=== PATIENT | male | born 1970 | race Caucasian/White ===

== ENCOUNTER 2021-04-03 02:19 | Emergency (ER) | payer BC ==
[~2021-04-03] VITALS: Ht 182 cm; Wt 83.0 kg
[~2021-04-03 02:19] MED LIST: ASPI-999 PO; CEPH500C PO; LISI10TA25; METO-333; METO25TA6 PO; PARO37.512 PO
[2021-04-03] MEDS ORDERED: ACETAMINOPHEN 500 MG TAB (TYLENOL) PO STA (02:42)
[2021-04-03] MEDS ORDERED: ACETAMINOPHEN 500 MG TAB (TYLENOL) ONE (02:43)
--- NOTE | 2021-04-03 02:45 | ED General ---
General Chief Complaint: Cough/Cold/Flu Symptoms Stated Complaint: COUGH,FEVER,WEAKNESS,LOSS OF TASTE & SMELL Source of Information: Patient History of Present Illness Date Seen by Provider: Apr 03, 2021 Time Seen by Provider: 02:35 Initial Comments PT ARRIVES VIA POV FROM HOME PT STATES HE HAS BEEN ILL FOR THE LAST 8 DAYS--SYMPTOMS BEGAN 03/26/21 C/O COUGH/CONGESTION C/O SUBJECTIVE FEVER C/O GENERALIZED WEAKNESS C/O LOSS OF TASTE AND SMELL C/O HEADACHE C/O BODY ACHES C/O SORE THROAT C/O FATIGUE C/O NAUSEA AND A LITTLE BIT OF DIARRHEA HAS NOT HAD COVID-19 VACCINE NO KNOWN SICK CONTACTS, BUT DOES GO INTO WORK AT LEAST 2 DAYS A WEEK, OTHERWISE WORKS FROM HOME PT LIVES ALONE HAS NOT SOUGHT CARE UNTIL TONIGHT SYMPTOMS NO DIFFERENT TONIGHT HAS NOT TAKEN ANYTHING FOR SYMPTOMS PCP: DR. WILSON Allergies and Home Medications Allergies Coded Allergies: No Known Drug Allergies (Unverified , 06/27/16) Home Medications Cephalexin 500 Mg Capsule, 500 MG PO TID Prescribed by: MELISSA LEVINE on 06/27/16 1539 Dexamethasone 6 Mg Tablet, 6 MG PO DAILY Prescribed by: LIMA RESENDIZ on 04/03/21 0453 Doxycycline Hyclate 100 Mg Tablet, 100 MG PO BID Prescribed by: LIMA RESENDIZ on 04/03/21 0453 Ondansetron 4 Mg Tab.rapdis, 4 MG PO Q4H Prescribed by: LIMA RESENDIZ on 04/03/21 0326 Paroxetine Hcl 37.5 Mg Tab.sr.24h, 1 TAB PO DAILY, (Reported) Patient Home Medication List Home Medication List Reviewed: Yes Review of Systems Review of Systems Constitutional: see HPI, chills, fever, malaise, weakness EENTM: see HPI, nose congestion, throat pain Respiratory: see HPI, cough, short of breath (SLIGHT) Gastrointestinal: see HPI, diarrhea, nausea; No vomiting Genitourinary: no symptoms reported Musculoskeletal: see HPI (BODY ACHES) Skin: no symptoms reported Psychiatric/Neurological: See HPI, Headache Past Pxfbvwc-Ovsaqh-Mgrxyx Hx Patient Social History Tobacco Use?: No Substance use?: No Alcohol Use?: Yes Alcohol Frequency: Couple times a week Seasonal Allergies Seasonal Allergies: No Past Medical History Surgeries: No 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 oz. 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 Norm as Tested Skin: Normal Color, Warm/Dry, Other (PSORIATIC PLAQUES ON KNEES) Focused Exam Lactate Level 04/03/21 03:55: Lactic Acid Level 1.23 Lactic Acid Level Laboratory Tests Test 04/03/21 03:55 Lactic Acid Level 1.23 MMOL/L (0.50-2.00) Progress/Results/Core Measures Suspected Sepsis SIRS Temperature: Pulse: Respiratory Rate: Laboratory Tests 04/03/21 03:55: White Blood Count 5.5 Blood Pressure / Mean: 04/03/21 03:55: Lactic Acid Level 1.23 Laboratory Tests 04/03/21 03:55: Creatinine 1.15, Platelet Count 151, Total Bilirubin 0.5 Results/Orders Lab Results Laboratory Tests Test 04/03/21 02:35 04/03/21 03:44 04/03/21 03:55 Range/Units SARS-CoV-2 RNA (RT-PCR) Negative Positive Not Detecte White Blood Count 5.5 4.3-11.0 10^3/uL Red Blood Count 4.63 4.30-5.52 10^6/uL Hemoglobin 14.4 13.3-17.7 g/dL Hematocrit 43 40-54 % Mean Corpuscular Volume 92 80-99 fL Mean Corpuscular Hemoglobin 31 25-34 pg Mean Corpuscular Hemoglobin Concent 34 32-36 g/dL Red Cell Distribution Width 11.9 10.0-14.5 % Platelet Count 151 130-400 10^3/uL Mean Platelet Volume 11.2 9.0-12.2 fL Immature Granulocyte % (Auto) 1 % Neutrophils (%) (Auto) 80 H 42-75 % Lymphocytes (%) (Auto) 13 12-44 % Monocytes (%) (Auto) 6 0-12 % Eosinophils (%) (Auto) 0 0-10 % Basophils (%) (Auto) 0 0-10 % Neutrophils # (Auto) 4.5 1.8-7.8 10^3/uL Lymphocytes # (Auto) 0.7 L 1.0-4.0 10^3/uL Monocytes # (Auto) 0.3 0.0-1.0 10^3/uL Eosinophils # (Auto) 0.0 0.0-0.3 10^3/uL Basophils # (Auto) 0.0 0.0-0.1 10^3/uL Immature Granulocyte # (Auto) 0.0 0.0-0.1 10^3/uL Erythrocyte Sedimentation Rate 17 0-30 MM/HR Sodium Level 136 135-145 MMOL/L Potassium Level 4.1 3.6-5.0 MMOL/L Chloride Level 101 98-107 MMOL/L Carbon Dioxide Level 25 21-32 MMOL/L Anion Gap 10 5-14 MMOL/L Blood Urea Nitrogen 15 7-18 MG/DL Creatinine 1.15 0.60-1.30 MG/DL Estimat Glomerular Filtration Rate 67 BUN/Creatinine Ratio 13 Glucose Level 116 H 70-105 MG/DL Lactic Acid Level 1.23 0.50-2.00 MMOL/L Calcium Level 9.1 8.5-10.1 MG/DL Corrected Calcium 9.2 8.5-10.1 MG/DL Total Bilirubin 0.5 0.1-1.0 MG/DL Aspartate Amino Transf (AST/SGOT) 31 5-34 U/L Alanine Aminotransferase (ALT/SGPT) 23 0-55 U/L Alkaline Phosphatase 32 L 40-136 U/L Lactate Dehydrogenase 253 H 125-220 U/L C-Reactive Protein High Sensitivity 5.38 H 0.00-0.50 MG/DL Total Protein 6.8 6.4-8.2 GM/DL Albumin 3.9 3.2-4.5 GM/DL Procalcitonin 0.04 <0.10 NG/ML My Orders Orders - LIMA RESENDIZ Covid 19 Inhouse Test (04/03/21 02:35) Chest 1 View, Ap/Pa Only (04/03/21 02:42) Acetaminophen Tablet (Tylenol Tablet) (04/03/21 02:42) Acetaminophen Tablet (Tylenol Tablet) (04/03/21 02:43) Ed Iv/Invasive Line Start (04/03/21 03:34) Cbc With Automated Diff (04/03/21 03:34) Comprehensive Metabolic Panel (04/03/21 03:34) Lactic Acid Analyzer (04/03/21 03:34) Blood Culture (04/03/21 03:34) Ceftriaxone (Rocephin) (04/03/21 03:45) Procalcitonin (Pct) (04/03/21 03:34) Hs C Reactive Protein (04/03/21 03:34) Erythrocyte Sedimentation Rate (04/03/21 03:34) LDH (04/03/21 03:34) Methylprednisolone Sod Succ (Solu-Medrol (04/03/21 03:34) Covid 19 Inhouse Test (04/03/21 03:42) Medications Given in ED Current Medications Medications Dose Ordered Sig/Elicia Route Start Time Stop Time Status Last Admin Dose Admin Ceftriaxone Sodium 1000 mg/ Sterile Water 10 ml @ 200 mls/hr ONCE ONCE IV 04/03/21 03:45 04/03/21 03:47 DC 04/03/21 04:16 200 MLS/HR Vital Signs/I&O 04/03/21 04/03/21 04/03/21 02:31 02:35 02:47 Temp 38.3 38.3 Pulse 55 Resp 22 B/P (MAP) 125/75 (92) Pulse Ox 94 O2 Delivery Room Air Room Air Capillary Refill : Progress Note : Progress Note PLACED IN ISOLATION ROOM PPE WORN AT ALL TIMES COVID-19 TESTING DONE-TEST REPEATED NO DYSPNEA NO HYPOXIA RARE, DRY COUGH GIVEN TYLENOL FOR FEVER Diagnostic Imaging Comments CXR--PATCHY BILATERAL INFILTRATES, PENDING RADIOLOGIST REVIEW Reviewed: Reviewed by Me Departure Impression Primary Impression: Pneumonia due to COVID-19 virus Disposition: 01 HOME, SELF-CARE Condition: Stable Departure-Patient Inst. Referrals: JUNO WILSON MD (PCP/Family) Primary Care Physician Patient Instructions: Preventing the Spread of an Infectious Disease, COVID-19 ED, Pneumonia in Adults, REGEN-COV (casirivimab and imdevimab) FDA Fact Sheet Add. Discharge Instructions: LOTS OF CLEAR LIQUIDS TYLENOL 1 GRAM AND MOTRIN 800 MG 4 TIMES A DAY NEEDED FOR PAIN OR FEVER OVER THE COUNTER MUCINEX DM FOR COUGH AND [facility] WILL CONTACT YOU THIS MORNING TO ARRANGE FOR REGENERON INFUSION FOLLOW UP WITH YOUR DR IN 3-4 DAYS FOR FURTHER CARE RETURN TO ER IF WORSE All discharge instructions reviewed with patient and/or family. Voiced understanding. Scripts Doxycycline Hyclate (Doxycycline Hyclate) 100 Mg Tablet 100 MG PO BID, #20 TAB 0 Refills Prov: LIMA RESENDIZ DO 04/03/21 Dexamethasone (Decadron) 6 Mg Tablet 6 MG PO DAILY, #10 TAB Prov: LIMA RESENDIZ DO 04/03/21 Ondansetron (Ondansetron Odt) 4 Mg Tab.rapdis 4 MG PO Q4H for Nausea/Vomiting, #10 TAB Prov: LIMA RESENDIZ DO 04/03/21 LIMA RESENDIZ DO Apr 03, 2021 02:45
[2021-04-03] MEDS ORDERED: ONDA4TAB11 PO ×2 (03:26→05:10)
[2021-04-03] MEDS ORDERED: methylPREDNISolone 125 MG (Solu-MEDROL) VIAL IV STA (03:34)
[2021-04-03] MEDS ORDERED: cefTRIAXone 1,000 MG in WATER (STERILE) FOR INJECTION 10 ML IV ONE (03:45)
[2021-04-03 04:29] LABS: BASOPHILS % (AUTO) 0 % (0-10); EOSINOPHILS % (AUTO) 0 % (0-10); HEMATOCRIT 43 % (40-54); HEMOGLOBIN 14.4 g/dL (13.3-17.7); LYMPHOCYTES # (AUTO) 0.7 10^3/uL (1.0-4.0); LYMPHOCYTES % (AUTO) 13 % (12-44); MEAN CORPUSCULAR HEMOGLOBIN 31 pg (25-34); MEAN CORPUSCULAR HGB CONC 34 g/dL (32-36); MEAN CORPUSCULAR VOLUME 92 fL (80-99); MEAN PLATELET VOLUME 11.2 fL (9.0-12.2); MONOCYTES # (AUTO) 0.3 10^3/uL (0.0-1.0); MONOCYTES % (AUTO) 6 % (0-12); NEUTROPHILS # (AUTO) 4.5 10^3/uL (1.8-7.8); NEUTROPHILS % (AUTO) 80 % (42-75); PLATELET COUNT 151 10^3/uL (130-400); WHITE BLOOD COUNT 5.5 10^3/uL (4.3-11.0)
[2021-04-03 04:33] LABS: ALBUMIN 3.9 GM/DL (3.2-4.5); POTASSIUM 4.1 MMOL/L (3.6-5.0)
[2021-04-03 04:34] LABS: CALCIUM 9.1 MG/DL (8.5-10.1)
[2021-04-03 04:36] LABS: TOTAL PROTEIN 6.8 GM/DL (6.4-8.2)
[2021-04-03 04:38] LABS: BILIRUBIN,TOTAL 0.5 MG/DL (0.1-1.0)
[2021-04-03 04:40] LABS: CREATININE SERUM 1.15 MG/DL (0.60-1.30)
[2021-04-03] MEDS ORDERED: DOXY100T2 PO ×2 (04:53→05:10)
[2021-04-03] MEDS ORDERED: DEXA6TAB6 PO ×2 (04:53→05:10)
[2021-04-03 04:58] LABS: ERYTHROCYTE SEDIMENTATION RATE 17 MM/HR (0-30)
[2021-04-03 05:08] VITALS: BP 113/63
--- NOTE | 2021-04-03 07:04 | Diagnostic Imaging Report ---
INDICATION: Cough and fever. COMPARISON: None FINDINGS: Single frontal radiographic view of the chest was obtained and demonstrates scattered patchy infiltrate bilaterally. There is no large effusion or pneumothorax. Cardiac silhouette and pulmonary vasculature are within normal limits. Osseous structures show no gross acute abnormalities. IMPRESSION: 1. Scattered bilateral pulmonary infiltrates. Correlation with Covid status is recommended. Dictated by: Dictated on workstation # [id number]
== END 2021-04-03 05:10 | disposition home or self-care (01) ==
LOC: EDUNIT# 02:19 → ER 02:24
DX: U07.1 COVID-19 (principal); J12.82 Pneumonia due to coronavirus disease 2019; I10 Essential (primary) hypertension; F41.9 Anxiety disorder, unspecified; Z79.899 Other long term (current) drug therapy
CPT/HCPCS: 36415; 71045; 80053; 83605; 83615; 84145; 85025; 85652; 86141; 87040; 87636

== ENCOUNTER 2021-04-04 10:37 | Outpatient (CLI) | payer BC ==
[~2021-04-04] VITALS: Ht 182.9 cm; Wt 83.0 kg
[2021-04-04 10:36] VITALS: BP 120/55
[~2021-04-04 10:37] MED LIST changes: +DEXA6TAB6 PO; +DOXY100T2 PO; +ONDA4TAB11 PO
[2021-04-04] MEDS ORDERED: CASIRIVIMAB/IMDEVIMAB 1,200 MG in NS (IVPB) 250 ML IV ONE (10:45)
[2021-04-04] MEDS ORDERED: ACETAMINOPHEN 500 MG TAB (TYLENOL) PO PRN (10:45)
[2021-04-04] MEDS ORDERED: diphenhydrAMINE 50 MG/ML INJ (BENADRYL) IV PRN (10:45)
[2021-04-04] MEDS ORDERED: EPINEPHrine INJECTION 1 MG/ML AMP IM PRN (10:45)
[2021-04-04] MEDS ORDERED: ONDANSETRON 4 MG/2 ML (SDV) Z0FRAN IV PRN (10:45)
[2021-04-04 11:30] VITALS: BP 108/48
== END 2021-04-04 12:15 ==
LOC: INFUSION 10:37
PROVIDERS: ATTEND Emergency Medicine
DX: Z23 Encounter for immunization (principal); U07.1 COVID-19

== ENCOUNTER 2021-04-05 14:57 | Inpatient (IN) | payer BC ==
[~2021-04-05] VITALS: Ht 182.9 cm; Wt 81.3 kg
--- NOTE | 2021-04-05 15:32 | ED Dyspnea ---
General Chief Complaint: Coughing Up Blood Stated Complaint: COVID, COUGHING UP BLOOD, Nursing Triage Note: PT AMBULATE TO ROOM 10 WITH C/O COUGHING UP BLOOD. PT STATES THAT HIS SPUTUM IS TINGED WITH BLOOD ON OCCASION. PT REPORTS RECEIVING AN ANTIBODY INFUSION FOR COVID YESTERDAY MORNING. Source of Information: Patient Exam Limitations: No Limitations History of Present Illness Date Seen by Provider: Apr 05, 2021 Time Seen by Provider: 15:20 Initial Comments Patient is a 50-year-old male who presents to the emergency room today with a chief complaint of hemoptysis. Patient states that he was diagnosed with Covid a couple of days ago after having symptoms for about a week and a half. He was told that he had Covid pneumonia on of last week, 2 days ago. He did not require oxygen supplementation, review of the medical record shows his O2 sats were 94%. Patient was scheduled for Regeneron therapy yesterday and completed that infusion without any incidents. Patient states over the last 24 hours he has had a little bit of increased shortness of breath. This morning when he woke up he coughed up some specks of blood and became concerned and presented to the emergency department. On arrival the patient's room air saturations are 86%. 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 He was placed on oxygen at 2 L per nasal cannula satting 90 to 91%. I increased him to 3 and this brought him to 92%. He demonstrates no increased work of breathing/respiratory distress. He is not dyspneic states he feels better on the oxygen. Denies any diarrhea, black or bloody stools. No urinary complaints or hematuria. No pain or swelling in his lower extremities. Denies earache, sore throat or nasal congestion. Per review of the medical record from placed on dexamethasone 6 mg daily. All other review of systems reviewed and negative except as stated above. Timing/Duration: 4-6 Hours Activities at Onset: None Prior Episodes/Possible Cause: Illness Exposure Modifying Factors: Worse With Coughing Associated Symptoms: Cough Allergies and Home Medications Allergies Coded Allergies: No Known Drug Allergies (Unverified , 04/04/21) Home Medications Cephalexin 500 Mg Capsule, 500 MG PO TID Prescribed by: MELISSA LEVINE on 06/27/16 1539 Dexamethasone 6 Mg Tablet, 6 MG PO DAILY Prescribed by: LIMA RESENDIZ on 04/03/21509 Doxycycline Hyclate 100 Mg Tablet, 100 MG PO BID Prescribed by: LIMA RESENDIZ on 04/03/21509 Ondansetron 4 Mg Tab.rapdis, 4 MG PO Q4H Prescribed by: LIMA RESENDIZ on 04/03/21509 Paroxetine Hcl 37.5 Mg Tab.sr.24h, 1 TAB PO DAILY, (Reported) Patient Home Medication List Home Medication List Reviewed: Yes Review of Systems Review of Systems Constitutional: see HPI EENTM: no symptoms reported Respiratory: cough, hemoptysis, short of breath (mild) Cardiovascular: no symptoms reported Gastrointestinal: no symptoms reported Genitourinary: no symptoms reported Musculoskeletal: no symptoms reported Skin: no symptoms reported, other (history of psoriasis - no medical therapies) Psychiatric/Neurological: No Symptoms Reported All Other Systems Reviewed Negative Unless Noted: Yes Past Lpkoarc-Ewqlcj-Euohcb Hx Patient Social History Smoking Status: Never a Smoker Substance use?: No Alcohol Use?: Yes Alcohol type: Beer Alcohol Frequency: Once in a while Pt feels they are or have been: No Seasonal Allergies Seasonal Allergies: No Past Medical History Surgeries: No 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 oz. 84.733511ar; 24.00 BMI Method:Stated General Appearance: No Apparent Distress, WD/WN HEENT: Normal ENT Inspection Neck: Normal Inspection Respiratory: No Accessory Muscle Use, No Respiratory Distress, Other (crackles bilateral all lung gan; no increased work of breathing; no distress) Cardiovascular: Regular Rate, Rhythm, Bradycardia Gastrointestinal: Normal Bowel Sounds, Non Tender, Soft Extremity: Normal Capillary Refill, Normal Inspection, Normal Range of Motion, Non Tender, No Calf Tenderness, No Pedal Edema Neurologic/Psychiatric: Alert, Oriented x3, No Motor/Sensory Deficits, Normal Mood/Affect Skin: Normal Color, Warm/Dry Focused Exam Lactate Level 04/05/21 14:36: Lactic Acid Level 1.02 Lactic Acid Level Laboratory Tests Test 04/05/21 14:36 Lactic Acid Level 1.02 MMOL/L (0.50-2.00) Progress/Results/Core Measures Results/Orders Lab Results Laboratory Tests Test 04/05/21 14:36 04/05/21 16:34 Range/Units White Blood Count 7.1 4.3-11.0 10^3/uL Red Blood Count 4.64 4.30-5.52 10^6/uL Hemoglobin 14.6 13.3-17.7 g/dL Hematocrit 43 40-54 % Mean Corpuscular Volume 93 80-99 fL Mean Corpuscular Hemoglobin 32 25-34 pg Mean Corpuscular Hemoglobin Concent 34 32-36 g/dL Red Cell Distribution Width 11.8 10.0-14.5 % Platelet Count 236 130-400 10^3/uL Mean Platelet Volume 10.4 9.0-12.2 fL Immature Granulocyte % (Auto) 1 % Neutrophils (%) (Auto) 86 H 42-75 % Lymphocytes (%) (Auto) 7 L 12-44 % Monocytes (%) (Auto) 6 0-12 % Eosinophils (%) (Auto) 0 0-10 % Basophils (%) (Auto) 0 0-10 % Neutrophils # (Auto) 6.1 1.8-7.8 10^3/uL Lymphocytes # (Auto) 0.5 L 1.0-4.0 10^3/uL Monocytes # (Auto) 0.4 0.0-1.0 10^3/uL Eosinophils # (Auto) 0.0 0.0-0.3 10^3/uL Basophils # (Auto) 0.0 0.0-0.1 10^3/uL Immature Granulocyte # (Auto) 0.0 0.0-0.1 10^3/uL Neutrophils % (Manual) 85 % Lymphocytes % (Manual) 6 % Monocytes % (Manual) 9 % Blood Morphology Comment NORMAL Prothrombin Time 12.4 12.2-14.7 SEC INR Comment 0.9 0.8-1.4 Activated Partial Thromboplast Time 25 24-35 SEC D-Dimer 1.18 H 0.00-0.49 UG/ML Sodium Level 138 135-145 MMOL/L Potassium Level 4.2 3.6-5.0 MMOL/L Chloride Level 102 98-107 MMOL/L Carbon Dioxide Level 27 21-32 MMOL/L Anion Gap 9 5-14 MMOL/L Blood Urea Nitrogen 17 7-18 MG/DL Creatinine 1.02 0.60-1.30 MG/DL Estimat Glomerular Filtration Rate 77 BUN/Creatinine Ratio 17 Glucose Level 131 H 70-105 MG/DL Lactic Acid Level 1.02 0.50-2.00 MMOL/L Calcium Level 9.3 8.5-10.1 MG/DL Corrected Calcium 9.5 8.5-10.1 MG/DL Total Bilirubin 0.6 0.1-1.0 MG/DL Aspartate Amino Transf (AST/SGOT) 30 5-34 U/L Alanine Aminotransferase (ALT/SGPT) 17 0-55 U/L Alkaline Phosphatase 30 L 40-136 U/L C-Reactive Protein High Sensitivity 3.98 H 0.00-0.50 MG/DL Total Protein 6.8 6.4-8.2 GM/DL Albumin 3.7 3.2-4.5 GM/DL Procalcitonin 0.03 <0.10 NG/ML Urine Color YELLOW Urine Clarity CLEAR Urine pH 7.5 5-9 Urine Specific [place] 1.015 L 1.016-1.022 Urine Protein NEGATIVE NEGATIVE Urine Glucose (UA) NEGATIVE NEGATIVE Urine Ketones NEGATIVE NEGATIVE Urine Nitrite NEGATIVE NEGATIVE Urine Bilirubin NEGATIVE NEGATIVE Urine Urobilinogen 1.0 < = 1.0 MG/DL Urine Leukocyte Esterase NEGATIVE NEGATIVE Urine RBC (Auto) NEGATIVE NEGATIVE Urine RBC NONE /HPF Urine WBC 0-2 /HPF Urine Squamous Epithelial Cells 0-2 /HPF Urine Renal Epithelial Cells NONE /HPF Urine Crystals NONE /LPF Urine Bacteria NEGATIVE /HPF Urine Casts NONE /LPF Urine Mucus NEGATIVE /LPF Urine Culture Indicated NO My Orders Orders - ANIBAL CHAMBERLAIN MD Cbc With Automated Diff (04/05/21 15:31) Comprehensive Metabolic Panel (04/05/21 15:31) Blood Culture (04/05/21 15:31) Sputum Culture (04/05/21 15:31) Urinalysis (04/05/21 15:31) Protime With Inr (04/05/21 15:31) Partial Thromboplastin Time (04/05/21 15:31) Ed Iv/Invasive Line Start (04/05/21 15:31) Ed Iv/Invasive Line Start (04/05/21 15:31) Vital Signs Adult Sepsis Patie Q15M (04/05/21 15:31) O2 (04/05/21 15:31) Remove Rings In Anticipation O (04/05/21 15:31) Lactic Acid Analyzer (04/05/21 15:31) Hs C Reactive Protein (04/05/21 15:31) Fibrin Degradation Products (04/05/21 15:31) Procalcitonin (Pct) (04/05/21 15:31) Chest 1 View, Ap/Pa Only (04/05/21 15:38) Manual Differential (04/05/21 14:36) Ct Angio Chest W (04/05/21 16:34) Iohexol Injection (Omnipaque 350 Mg/Ml 1 (04/05/21 17:00) Received Contrast (Hold Metformin- Contr (04/05/21 17:00) Ns (Ivpb) (Sodium Chloride 0.9% Ivpb Bag (04/05/21 17:00) Medications Given in ED Vital Signs/I&O 04/05/21 04/05/21 04/05/21 15:00 15:05 15:09 Temp 36.5 Pulse 51 Resp 17 B/P (MAP) 124/73 (90) Pulse Ox 95 O2 Delivery Nasal Cannula Room Air Room Air O2 Flow Rate 3.00 Blood Pressure Mean: 90 Diagnostic Imaging Diagonstic Imaging: Xray, CT Plain Films/CT/US/NM/MRI: chest Comments [facility], [facility]. [place], [place] NAME: AG BAZAN MED REC#: [id number] PT STATUS: REG ER : 1970 PHYSICIAN: ANIBAL CHAMBERLAIN MD ADMIT DATE: 04/05/21/ER Draft Date of Exam:04/05/21 CHEST 1 VIEW, AP/PA ONLY INDICATION: Positive for Covid, hemoptysis. EXAMINATION: Portable erect AP chest at 4:05 p.m. FINDINGS: The heart size is within normal limits and stable when compared to 04/03/2021. The alveolar/interstitial pulmonary infiltrates involving both lungs, seen previously, are again evident. These abnormal parenchymal densities do seem somewhat less prominent than on the prior study. Overall, however, there has been no significant change. There is still no sign of a pleural effusion. The mediastinum is not widened. The osseous structures are intact. IMPRESSION: There continues to be patchy alveolar/interstitial pulmonary infiltrates, bilaterally, consistent with pneumonia/atelectasis. When compared to the previous study, there has been no significant change. Dictated on workstation # [id number] Dict: 04/05/21 1616 Trans: 04/05/21 1622 [facility] [id number] Interpreted by: NANI DOWELL MD Electronically signed by: NAME: AG BAZAN [facility] REC#: [id number] PT STATUS: REG ER : 1970 PHYSICIAN: NAIBAL CHAMBERLAIN MD ADMIT DATE: 04/05/21/ER Draft Date of Exam:04/05/21 CT ANGIO CHEST W PROCEDURE: CT angiography of the chest with contrast. TECHNIQUE: Multiple contiguous axial images were obtained through the chest after uneventful bolus administration of intravenous contrast. 3D reconstructed CTA MIP acquisitions were also performed. Auto Exposure Controls were utilized during the CT exam to meet ALARA standards for radiation dose reduction. INDICATION: 50-year-old male, Covid pneumonia, hemoptysis, hypoxia, elevated D-dimer. CORRELATION: None. FINDINGS: Heart size enlarged but without disproportionate right heart strain. Scattered coronary artery calcification. No pericardial effusion. Thoracic aortic contour unremarkable. No pulmonary artery filling defect to suggest pulmonary embolism. No pathologically enlarged mediastinal lymph node. There may be a small hiatal hernia. Prominent scattered groundglass opacities noted throughout both lung gan with disproportionately greater involvement of the bilateral lower lobe distribution and lung bases. There is also some involvement of the upper lobe distributions. May be trace pleural effusions. The visualized portions of the upper abdomen are unremarkable. The visualized osseous structures demonstrate no acute finding. IMPRESSION: 1. No CTA evidence for pulmonary embolism. 2. Extensive groundglass opacities of both lung gan, greatest involving the bilateral lower lobe distributions, compatible with multilobe pneumonia which would include potential for Covid 19 pneumonia. Dictated on workstation # [id number] Dict: 04/05/21 1819 Trans: 04/05/21 1837 [facility] [id number] Interpreted by: TASNEEM YI DO Electronically signed by: Departure Communication (Admissions) Time/Spoke to Admitting Phy: 18:[address] Bass once admission observation Impression Primary Impression: Pneumonia due to COVID-19 virus Additional Impression: Hypoxia Disposition: ADMITTED INPATIENT Condition: Stable Admissions Decision to Admit Reason: Admit from ER (General) Decision to Admit/Date: Apr 05, 2021 Time/Decision to Admit Time: 18:42 Departure-Patient Inst. Referrals: JUNO WILSON MD (PCP/Family) Primary Care Physician ANIBAL CHAMBERLAIN MD Apr 05, 2021 15:32
[2021-04-05 16:07] LABS: BASOPHILS % (AUTO) 0 % (0-10); EOSINOPHILS % (AUTO) 0 % (0-10); HEMATOCRIT 43 % (40-54); HEMOGLOBIN 14.6 g/dL (13.3-17.7); LYMPHOCYTES # (AUTO) 0.5 10^3/uL (1.0-4.0); LYMPHOCYTES % (AUTO) 7 % (12-44); MEAN CORPUSCULAR HEMOGLOBIN 32 pg (25-34); MEAN CORPUSCULAR HGB CONC 34 g/dL (32-36); MEAN CORPUSCULAR VOLUME 93 fL (80-99); MEAN PLATELET VOLUME 10.4 fL (9.0-12.2); MONOCYTES # (AUTO) 0.4 10^3/uL (0.0-1.0); MONOCYTES % (AUTO) 6 % (0-12); NEUTROPHILS # (AUTO) 6.1 10^3/uL (1.8-7.8); NEUTROPHILS % (AUTO) 86 % (42-75); PLATELET COUNT 236 10^3/uL (130-400); WHITE BLOOD COUNT 7.1 10^3/uL (4.3-11.0)
[2021-04-05 16:16] LABS: ALBUMIN 3.7 GM/DL (3.2-4.5); POTASSIUM 4.2 MMOL/L (3.6-5.0)
[2021-04-05 16:17] LABS: CALCIUM 9.3 MG/DL (8.5-10.1)
[2021-04-05 16:18] LABS: TOTAL PROTEIN 6.8 GM/DL (6.4-8.2)
[2021-04-05 16:20] LABS: BILIRUBIN,TOTAL 0.6 MG/DL (0.1-1.0); FIBRIN DEGRADATION PRODUCTS 1.18 UG/ML (0.00-0.49); INR 0.9 (0.8-1.4); PROTHROMBIN TIME PATIENT 12.4 SEC (12.2-14.7)
[2021-04-05 16:22] LABS: CREATININE SERUM 1.02 MG/DL (0.60-1.30)
--- NOTE | 2021-04-05 16:22 | Diagnostic Imaging Report ---
INDICATION: Positive for Covid, hemoptysis. EXAMINATION: Portable erect AP chest at 4:05 p.m. FINDINGS: The heart size is within normal limits and stable when compared to 04/03/2021. The alveolar/interstitial pulmonary infiltrates involving both lungs, seen previously, are again evident. These abnormal parenchymal densities do seem somewhat less prominent than on the prior study. Overall, however, there has been no significant change. There is still no sign of a pleural effusion. The mediastinum is not widened. The osseous structures are intact. IMPRESSION: There continues to be patchy alveolar/interstitial pulmonary infiltrates, bilaterally, consistent with pneumonia/atelectasis. When compared to the previous study, there has been no significant change. Dictated by: Dictated on workstation # [id number]
[2021-04-05 16:28] LABS: LYMPHOCYTES % (MANUAL) 6 %; MONOCYTES % (MANUAL) 9 %; NEUTROPHILS % (MANUAL) 85 %; RBC MORPH NORMAL
[2021-04-05 16:39] LABS: BILIRUBIN,URINE NEGATIVE (NEGATIVE); CLARITY,URINE CLEAR; COLOR,URINE YELLOW; GLUCOSE, URINE (UA) NEGATIVE (NEGATIVE); KETONES,URINE NEGATIVE (NEGATIVE); LEUKOCYTE ESTERASE ,URINE NEGATIVE (NEGATIVE); NITRITE,URINE NEGATIVE (NEGATIVE); PH,URINE 7.5 (5-9); PROTEIN,URINE NEGATIVE (NEGATIVE)
[2021-04-05 16:46] LABS: BACTERIA,URINE NEGATIVE /HPF; SQUAMOUS EPITHELIAL CELL,UR 0-2 /HPF; WBC,URINE 0-2 /HPF
[2021-04-05] MEDS ORDERED: HOLD METFORMIN - RECEIVED CONTRAST 20 ML VIAL IV SCH (17:00)
[2021-04-05] MEDS ORDERED: IOHEXOL 350 MG/ML 100 ML (OMNIPAQUE 350) VIAL IV ONE (17:00)
[2021-04-05] MEDS ORDERED: NS 100 ML (IVPB) BAG IV ONE (17:00)
--- NOTE | 2021-04-05 18:38 | Diagnostic Imaging Report ---
PROCEDURE: CT angiography of the chest with contrast. TECHNIQUE: Multiple contiguous axial images were obtained through the chest after uneventful bolus administration of intravenous contrast. 3D reconstructed CTA MIP acquisitions were also performed. Auto Exposure Controls were utilized during the CT exam to meet ALARA standards for radiation dose reduction. INDICATION: 50-year-old male, Covid pneumonia, hemoptysis, hypoxia, elevated D-dimer. CORRELATION: None. FINDINGS: Heart size enlarged but without disproportionate right heart strain. Scattered coronary artery calcification. No pericardial effusion. Thoracic aortic contour unremarkable. No pulmonary artery filling defect to suggest pulmonary embolism. No pathologically enlarged mediastinal lymph node. There may be a small hiatal hernia. Prominent scattered groundglass opacities noted throughout both lung gan with disproportionately greater involvement of the bilateral lower lobe distribution and lung bases. There is also some involvement of the upper lobe distributions. May be trace pleural effusions. The visualized portions of the upper abdomen are unremarkable. The visualized osseous structures demonstrate no acute finding. IMPRESSION: 1. No CTA evidence for pulmonary embolism. 2. Extensive groundglass opacities of both lung gan, greatest involving the bilateral lower lobe distributions, compatible with multilobe pneumonia which would include potential for Covid 19 pneumonia. Dictated by: Dictated on workstation # [id number]
[2021-04-05] MEDS ORDERED: NS IV 1000 ML 1,000 ML ONE (20:07)
[2021-04-05 20:13] VITALS: BP 124/73
[2021-04-05] MEDS: NS IV 1000 ML 1,000 ML IV SCH (20:22)
[2021-04-05] MEDS ORDERED: RT-ALBUTEROL HFA 8.5 GM INHALER IH PRN (20:30)
[2021-04-05 21:27] VITALS: BP 131/63
[2021-04-05] MEDS: PARoxetine 20 MG (PAXIL) TAB PO SCH (22:15)
[2021-04-05] MEDS: lisINopril 40 MG (PRINIVIL) TABLET PO SCH (22:15)
[2021-04-06 00:29] VITALS: BP 108/61
[2021-04-06 04:21] VITALS: BP 126/62
[2021-04-06] MEDS: NS IV 1000 ML 1,000 ML IV SCH ×2 (04:21→11:08)
[2021-04-06] MEDS ORDERED: RT-ALBUTEROL HFA 8.5 GM INHALER IH SCH (07:00)
[2021-04-06 08:40] VITALS: BP 121/60
[2021-04-06] MEDS ORDERED: lisINopril 40 MG (PRINIVIL) TABLET PO SCH (09:00)
[2021-04-06] MEDS ORDERED: PARoxetine 20 MG (PAXIL) TAB PO SCH (09:00)
[2021-04-06] MEDS: RT-ALBUTEROL HFA 8.5 GM INHALER IH SCH ×3 (10:04→18:55)
[2021-04-06 12:05] VITALS: BP 121/59
--- NOTE | 2021-04-06 12:44 | History & Physical-Hospitalist ---
History of Present Illness HPI/Chief Complaint Patient is a 50-year-old male who presented to the emergency department due to hypoxia. He was diagnosed with Covid recently he is on day 11 of symptoms today. He was prescribed hydroxychloroquine, azithromycin, and Decadron by his primary care provider. Despite this he continued to worsen. 2 days ago he received monoclonal antibody therapy and was doing well. Yesterday he developed hypoxia though with oxygen saturations down to 86%. That remained while he was in the emergency department and he required 3 L to keep his saturations up. He was admitted for further care. When I entered the room he had taken his oxygen off to see how his oxygen would do. There was not a probe in the room for me to check but RN notified to check. He denies any fevers, nausea, vomiting, diarrhea. He does have loss of taste and smell. He is unvaccinated for COVID. Date Seen 04/06/21 Time Seen by a Provider: 10:45 Attending Physician Farida Bass MD PCP Scott Whelan MD Referring Physician Date of Admission Apr 05, 2021 at 19:58 Home Medications & Allergies Home Medications Reviewed patient Home Medication Reconciliation performed by pharmacy medication reconciliations film laboratory technician and/or nursing. Patients Allergies have been reviewed. Allergies Allergies Coded Allergies No Known Drug Allergies (Unverified04/04/21) Past Dvoojqw-Ncliri-Fzpcpe Hx Patient Social History Employed/Student: employed Tobacco Use?: No Smoking Status: Never a Smoker Smokeless type used: Chew Smokeless Tobacco Frequency: Light User Use of E-Cig and/or Vaping dev: No Substance use?: No Alcohol Use?: Yes Alcohol type: Beer Alcohol Frequency: Several times a month Pt feels they are or have been: No Immunizations Up To Date Tetanus Booster (TDap): Less Than 5 Years Hepatitis A: No Hepatitis B: No Seasonal Allergies Seasonal Allergies: No Current Status Advance Directives: No Communicates: Verbally Primary Language: Monegasque Preferred Spoken Language: Monegasque Is interpretation needed?: No Implanted or Applied Medical D: None Past Medical History Hypertension Anxiety Psoriasis Adverse Reaction/Blood Tranf: No Family Medical History Reviewed Nursing Family Hx No Pertinent Family Hx Review of Systems Constitutional: No chills, No fever; malaise EENTM: no symptoms reported Respiratory: cough, short of breath Cardiovascular: No chest pain, No palpitations Gastrointestinal: no symptoms reported Genitourinary: no symptoms reported Musculoskeletal: no symptoms reported Skin: no symptoms reported Psychiatric/Neurological: No Symptoms Reported Physical Exam Physical Exam Vital Signs Vital Signs - First Documented 04/05/21 04/05/21 04/05/21 15:00 15:05 20:13 Temp 36.5 Pulse 51 Resp 17 B/P (MAP) 124/73 (90) Pulse Ox 95 O2 Delivery Nasal Cannula O2 Flow Rate 3.00 FiO2 21 Capillary Refill : Less Than 3 Seconds Height, Weight, BMI Height: 6'0" Weight: 187lbs. oz. 84.201594xg; 24.81 BMI Method:Stated General Appearance: No Apparent Distress, WD/WN, Thin HEENT: PERRL/EOMI, Moist Mucous Membranes Respiratory: No Accessory Muscle Use, No Respiratory Distress, Decreased Breath Sounds; No Wheezing Cardiovascular: Regular Rate, Rhythm, No Murmur Gastrointestinal: Normal Bowel Sounds, Non Tender, Soft Extremity: No Calf Tenderness, No Pedal Edema Neurologic/Psychiatric: Alert, Oriented x3, Normal Mood/Affect Results Results/Procedures Labs Laboratory Tests 04/05/21 14:36 Patient resulted labs reviewed. Imaging: Reviewed Imaging Report Imaging [facility] [place], [place] NAME: AG BAZAN [facility] REC#: [id number] PT STATUS: ADM Zaynab : 1970 PHYSICIAN: ANIBAL CHAMBERLAIN MD ADMIT DATE: 04/05/21/4TH Signed Date of Exam:04/05/21 CHEST 1 VIEW, AP/PA ONLY INDICATION: Positive for Covid, hemoptysis. EXAMINATION: Portable erect AP chest at 4:05 p.m. FINDINGS: The heart size is within normal limits and stable when compared to 04/03/2021. The alveolar/interstitial pulmonary infiltrates involving both lungs, seen previously, are again evident. These abnormal parenchymal densities do seem somewhat less prominent than on the prior study. Overall, however, there has been no significant change. There is still no sign of a pleural effusion. The mediastinum is not widened. The osseous structures are intact. IMPRESSION: There continues to be patchy alveolar/interstitial pulmonary infiltrates, bilaterally, consistent with pneumonia/atelectasis. When compared to the previous study, there has been no significant change. Dictated by: Dictated on workstation # [id number] Dict: 04/05/21 1616 Trans: 04/06/21745 PJCarlos [id number] Interpreted by: NANI DOWELL MD Electronically signed by: NANI DOWELL MD 04/06/21745 [facility], [place] NAME: AG BAZAN [facility] REC#: [id number] PT STATUS: ADM Zaynab : 1970 PHYSICIAN: ANIBAL CHAMBERLAIN MD ADMIT DATE: 04/05/21 Signed Date of Exam:04/05/21 CT ANGIO CHEST W PROCEDURE: CT angiography of the chest with contrast. TECHNIQUE: Multiple contiguous axial images were obtained through the chest after uneventful bolus administration of intravenous contrast. 3D reconstructed CTA MIP acquisitions were also performed. Auto Exposure Controls were utilized during the CT exam to meet ALARA standards for radiation dose reduction. INDICATION: 50-year-old male, Covid pneumonia, hemoptysis, hypoxia, elevated D-dimer. CORRELATION: None. FINDINGS: Heart size enlarged but without disproportionate right heart strain. Scattered coronary artery calcification. No pericardial effusion. Thoracic aortic contour unremarkable. No pulmonary artery filling defect to suggest pulmonary embolism. No pathologically enlarged mediastinal lymph node. There may be a small hiatal hernia. Prominent scattered groundglass opacities noted throughout both lung gan with disproportionately greater involvement of the bilateral lower lobe distribution and lung bases. There is also some involvement of the upper lobe distributions. May be trace pleural effusions. The visualized portions of the upper abdomen are unremarkable. The visualized osseous structures demonstrate no acute finding. IMPRESSION: 1. No CTA evidence for pulmonary embolism. 2. Extensive groundglass opacities of both lung gan, greatest involving the bilateral lower lobe distributions, compatible with multilobe pneumonia which would include potential for Covid 19 pneumonia. Dictated by: Dictated on workstation # [id number] Dict: 04/05/211818 Trans: 04/05/212055 PJCarlos [id number] Interpreted by: TASNEEM YI DO Electronically signed by: TASNEEM YI DO 04/05/212055 Assessment/Plan Admission Diagnosis Acute hypoxic respiratory failure due to COVID19 Admission Status: Inpatient Order (span 2 midnights) Reason for Inpatient Admission: see below Assessment and Plan Acute hypoxic respiratory failure due to COVID19 Continue on Decadron Received MAB as an outpatient On day 11 so outside of window for remdesivir I am hopeful he is out of the window for decompensation but will watch overnight to ensure HTN DC coreg as Bp well controlled telemetry due to mild bradycardia DVT ppx: Lovenox Diagnosis/Problems Diagnosis/Problems (1) Essential (primary) hypertension (2) Bradycardia (3) Pneumonia due to COVID-19 virus Status: Acute (4) Hypoxia Status: Acute FARIDA BASS MD Apr 06, 2021 12:44
[2021-04-06] MEDS ORDERED: ENOXAPARIN 40 MG/0.4 ML (LOVENOX) SYR SQ SCH (13:00)
[2021-04-06 16:45] VITALS: BP 122/80
[2021-04-06] MEDS: lisINopril 40 MG (PRINIVIL) TABLET PO SCH (20:00)
[2021-04-06] MEDS: PARoxetine 20 MG (PAXIL) TAB PO SCH (20:00)
[2021-04-06 20:04] VITALS: BP 129/76
[2021-04-07 00:29] VITALS: BP 119/66
[2021-04-07 04:03] VITALS: BP 116/57
[2021-04-07] MEDS: RT-ALBUTEROL HFA 8.5 GM INHALER IH SCH (07:46)
[2021-04-07 08:00] VITALS: BP 120/56
[2021-04-07] MEDS ORDERED: ACETAMINOPHEN 325 MG TABLET PO PRN (09:00)
[2021-04-07] MEDS ORDERED: CHOL200059 PO (09:47)
[2021-04-07] MEDS ORDERED: NEBI5TAB8 PO (09:47)
[2021-04-07] MEDS ORDERED: DOXY100T2 PO (09:47)
[2021-04-07] MEDS ORDERED: AZIT250T12 PO (09:47)
[2021-04-07] MEDS ORDERED: ASPI-1238 PO (09:47)
[2021-04-07] MEDS ORDERED: PARO37.511 PO (09:47)
[2021-04-07] MEDS ORDERED: MULT-1136 PO (09:47)
[2021-04-07] MEDS ORDERED: LISI40TA9 PO (09:47)
[2021-04-07] MEDS ORDERED: ONDA4TAB11 PO (09:47)
[2021-04-07] MEDS ORDERED: DEXA6TAB PO (09:47)
[2021-04-07 12:10] VITALS: BP 120/56
[2021-04-07 12:42] VITALS: BP 120/56
--- NOTE | 2021-04-07 16:43 | Discharge Summary ---
Discharge Summary Hospital Course Was the Problem List Reviewed?: Yes Problems/Dx: (1) Acute respiratory failure due to COVID-19 Status: Acute (2) Pneumonia due to COVID-19 virus Status: Acute (3) Essential (primary) hypertension Status: Chronic (4) Bradycardia Status: Chronic (5) Hypoxia Status: Acute Hospital Course Date of Admission: Apr 05, 2021 at 19:58 Admission Diagnosis : Acute respiratory failure due to COVID-19 Family Physician/Provider: Scott Wilsno MD Date of Discharge: 04/07/21 Discharge Diagnosis: Acute respiratory failure due to COVID-19 Hospital Course: Niko Serrato is a 50-year-old male who was admitted with acute respiratory failure due to COVID-19. He had been treated with a monoclonal antibody therapy as an outpatient. He had been started on steroids and doxycycline. He was continued on Decadron. His respiratory failure improved and he was no longer requiring supplemental oxygen at the time of discharge. He was recommended to discontinue his steroids and doxycycline. He had been prescribed hydroxychloroquine and azithromycin, but never picked them up from the pharmacy. He was told not to fill these medications. The CDC recommends against treating Covid patients with hydroxychloroquine because the risks outweigh the benefits. He should follow-up with his primary care physician, Dr. Wilson. He was discharged home in stable condition. Labs and Pending Lab Test: Microbiology 04/05/21 Blood Culture - Preliminary, Resulted No growth Home Meds Active Reported Vitamin D3 (Cholecalciferol (Vitamin D3)) 50 Mcg Tablet 50 Mcg PO DAILY Multivitamin 1 Each Tablet 1 Each PO DAILY Lisinopril 40 Mg Tablet 40 Mg PO HS Bystolic (Nebivolol HCl) 5 Mg Tablet 5 Mg PO HS Paroxetine HCl 37.5 Mg Tab.er.24h 37.5 Mg PO HS Ondansetron Odt (Ondansetron) 4 Mg Tab.rapdis 4 Mg PO Q4H PRN Aspirin EC (Aspirin) 81 Mg Tablet.dr 81 Mg PO HS Assessment/Pt Instructions Take medications as prescribed. Follow-up with your primary care physician. Return as worsening shortness of breath or if you feel like you are getting worse. Discharge Planning: <30 minutes discharge planning Discharge Instructions Discharge Diet: No Restrictions Activity as Tolerated: Yes Discharge Physical Examination Vital Signs Vital Signs Date Time Temp Pulse Resp B/P (MAP) Pulse Ox O2 Delivery O2 Flow Rate FiO2 04/07/21 12:42 36.5 92 20 120/56 90 Nasal Cannula 0.00 04/05/21 20:13 21 General Appearance: No Apparent Distress, WD/WN Respiratory: Lungs Clear, Normal Breath Sounds, No Respiratory Distress Cardiovascular: Regular Rate, Rhythm, No Edema, No Murmur Gastrointestinal: Normal Bowel Sounds, Non Tender, Soft Extremity: Normal Inspection, Non Tender, No Pedal Edema Skin: Normal Color, Warm/Dry Neurologic/Psychiatric: Alert, Oriented x3, No Motor/Sensory Deficits, Normal Mood/Affect Allergies: Coded Allergies: No Known Drug Allergies (Unverified , 04/04/21) Copy Copies To 1: SCOTT WILSON MD Discharge Summary Date of Admission Apr 05, 2021 at 19:58 Date of Discharge Apr 07, 2021 at 12:35 Discharge Date: Apr 07, 2021 Discharge Time: 1300 Admission Diagnosis Acute hypoxic respiratory failure due to COVID19 Discharge Diagnosis (1) Acute respiratory failure due to COVID-19 Status: Acute (2) Pneumonia due to COVID-19 virus Status: Acute (3) Essential (primary) hypertension Status: Chronic (4) Bradycardia Status: Chronic (5) Hypoxia Status: Acute GRISEL VALDOVINOS MD Apr 07, 2021 16:41
== END 2021-04-07 12:35 | disposition home or self-care (01) | DRG 177 ==
LOC: EDUNIT# 14:57 → ER 14:59 → 4TH 18:45 → OBSVTOIN 19:58
PROVIDERS: ADMIT Family Medicine; ATTEND Family Medicine
DX: U07.1 COVID-19 (principal); J96.01 Acute respiratory failure with hypoxia; J12.82 Pneumonia due to coronavirus disease 2019; I10 Essential (primary) hypertension; F17.220 Nicotine dependence, chewing tobacco, uncomplicated; R00.1 Bradycardia, unspecified; F41.9 Anxiety disorder, unspecified; Z79.899 Other long term (current) drug therapy; Z79.82 Long term (current) use of aspirin; Z73.0 Burn-out
CPT/HCPCS: 36415; 71045; 71275; 80053; 81000; 83605; 84145; 85007; 85027; 85379; 85610; 85730; 86141; 87040; 94640; 94664; 94760; 94761